=== PATIENT | female | born 1975 | race Caucasian/White ===

== ENCOUNTER 2016-11-23 11:12 | Emergency (ER) | payer OTHER ==
[~2016-11-23] VITALS: Ht 157.5 cm; Wt 61.2 kg
[~2016-11-23 11:12] MED LIST: POLY17PO6 PO; SERT100T PO; SERT50TA2 PO; TOPI100T PO
--- NOTE | 2016-11-23 12:09 | ED Abdominal Pain ---
General Stated Complaint: RIGHT SIDE ABD PAIN Source of Information: Patient Exam Limitations: No Limitations History of Present Illness Time Seen By Provider: 12:07 Initial Comments To ER with right upper quadrant abdominal pain. This began 2-3 days ago. She took her Humira shot for her crippling rheumatoid arthritis just prior to the onset of feeling ill with nausea and epigastric pain. She states that she does typically feel ill after taking her Humira shot but that that illness only typically last for 24-36 hours. No fever. No vomiting. No changes in bowel habits. She does have hepatitis C. She's been on Humira for about 7-8 months and states that she's had dramatic improvement in her arthritis. Timing/Duration: 2-3 Days Severity/Quality: Moderate Location: RUQ Radiation: No Radiation Associated Symptoms: Nausea/Vomiting Allergies and Home Medications Allergies Coded Allergies: No Known Drug Allergies (Unverified , 08/25/15) Home Medications Polyethylene Glycol 3350 17 Gm Powd.pack, 17 GM PO DAILY, #10 Prescribed by: HARIKA AVILEZ on 08/25/15 1227 Sertraline HCl 50 Mg Tablet, 50 MG PO DAILY, (Reported) Sertraline HCl 100 Mg Tablet, 100 MG PO DAILY, (Reported) Topiramate 100 Mg Tablet, 100 MG PO BID, (Reported) Review of Systems Constitutional: see HPI EENTM: No Symptoms Reported Respiratory: No Symptoms Reported Gastrointestinal: See HPI, Abdominal Pain Genitourinary: No Symptoms Reported Musculoskeletal: no symptoms reported Skin: no symptoms reported Psychiatric/Neurological: No Symptoms Reported Endocrine: No Symptoms Reported Hematologic/Lymphatic: No Symptoms Reported Past Bxveouh-Cgblzk-Mfyxec Hx Patient Social History Recent Foreign Travel: No Contact w/Someone Who Travel: No Surgeries HX Surgeries: Yes (ADHESIONS/LEFT OVARY REMOVED) Surgeries: Section, Gallbladder, Oophorectomy, Orthopedic, Tonsillectomy, Tubal Ligation Respiratory Hx Respiratory Disorders: No Cardiovascular Hx Cardiac Disorders: No Neurological Hx Neurological Disorders: Yes Neurological Disorders: Headaches /Migraines, Seizure Disorder Genitourinary Hx Genitourinary Disorders: No Gastrointestinal Hx Gastrointestinal Disorders: No Musculoskeletal Hx Musculoskeletal Disorders: Yes Musculoskeletal Disorders: Fibromyalgia, Rheumatoid Arthritis Endocrine Hx Endocrine Disorders: No HEENT HX ENT Disorders: No Cancer Hx Cancer: No Psychosocial Hx Psychiatric Problems: Yes Behavioral Health Disorders: Anxiety Integumentary HX Skin/Integumentary Disorder: No Blood Transfusions Hx Blood Disorders: No Physical Exam Vital Signs VS - Last 72 Hours, by Label 11/23/16 12:00 Temp 99.1 Pulse 63 Resp 18 B/P (MAP) 139/87 Pulse Ox 100 Capillary Refill : General Appearance: WD/WN, no apparent distress HEENT: PERRL/EOMI, normal ENT inspection Neck: non-tender, full range of motion Respiratory: no respiratory distress, no accessory muscle use Cardiovascular: regular rate, rhythm, no murmur Gastrointestinal: normal bowel sounds, non tender, soft Extremities: normal range of motion, non-tender, normal inspection Neurologic/Psychiatric: alert, normal mood/affect, oriented x 3 Skin: normal color, warm/dry Progress/Results/Core Measures Results/Orders Lab Results Laboratory Tests Test 11/23/16 12:00 11/23/16 12:05 Range/Units White Blood Count 8.4 4.3-11.0 10^3/uL Red Blood Count 4.38 4.35-5.85 10^6/uL Hemoglobin 13.6 11.5-16.0 G/DL Hematocrit 40 35-52 % Mean Corpuscular Volume 91 80-99 FL Mean Corpuscular Hemoglobin 31 25-34 PG Mean Corpuscular Hemoglobin Concent 34 32-36 G/DL Red Cell Distribution Width 14.3 10.0-14.5 % Platelet Count 177 130-400 10^3/uL Mean Platelet Volume 12.1 H 7.4-10.4 FL Neutrophils (%) (Auto) 54 42-75 % Lymphocytes (%) (Auto) 36 12-44 % Monocytes (%) (Auto) 8 0-12 % Eosinophils (%) (Auto) 2 0-10 % Basophils (%) (Auto) 0 0-10 % Neutrophils # (Auto) 4.5 1.8-7.8 X 10^3 Lymphocytes # (Auto) 3.1 1.0-4.0 X 10^3 Monocytes # (Auto) 0.7 0.0-1.0 X 10^3 Eosinophils # (Auto) 0.2 0.0-0.3 10^3/uL Basophils # (Auto) 0.0 0.0-0.1 10^3/uL Urine Color YELLOW Urine Clarity CLEAR Urine pH 5 5-9 Urine Specific [place] 1.020 1.016-1.022 Urine Protein NEGATIVE NEGATIVE Urine Glucose (UA) NEGATIVE NEGATIVE Urine Ketones NEGATIVE NEGATIVE Urine Nitrite NEGATIVE NEGATIVE Urine Bilirubin NEGATIVE NEGATIVE Urine Urobilinogen NORMAL NORMAL MG/DL Urine Leukocyte Esterase NEGATIVE NEGATIVE Urine RBC (Auto) NEGATIVE NEGATIVE Urine RBC NONE /HPF Urine WBC RARE /HPF Urine Squamous Epithelial Cells 5-10 /HPF Urine Crystals NONE /LPF Urine Bacteria NEGATIVE /HPF Urine Casts NONE /LPF Urine Mucus SMALL H /LPF Urine Culture Indicated NO Sodium Level 139 135-145 MMOL/L Potassium Level 4.0 3.6-5.0 MMOL/L Chloride Level 113 H 98-107 MMOL/L Carbon Dioxide Level 19 L 21-32 MMOL/L Anion Gap 7 5-14 MMOL/L Blood Urea Nitrogen 10 7-18 MG/DL Creatinine 0.95 0.60-1.30 MG/DL Estimat Glomerular Filtration Rate > 60 BUN/Creatinine Ratio 11 Glucose Level 86 70-105 MG/DL Calcium Level 9.0 8.5-10.1 MG/DL Total Bilirubin 0.3 0.1-1.0 MG/DL Aspartate Amino Transf (AST/SGOT) 20 5-34 U/L Alanine Aminotransferase (ALT/SGPT) 15 0-55 U/L Alkaline Phosphatase 57 40-136 U/L Total Protein 8.1 6.4-8.2 G/DL Albumin 4.3 3.2-4.5 G/DL Lipase 34 8-78 U/L Urine Test NEGATIVE NEGATIVE My Orders Orders - HARIKA AVILEZ APRN Ua Culture If Indicated (11/23/16 12:01) Cbc With Automated Diff (11/23/16 12:06) Comprehensive Metabolic Panel (11/23/16 12:06) Lipase (11/23/16 12:06) Saline Lock/Iv-Start (11/23/16 12:06) Fentanyl Injection (Sublimaze Injection (11/23/16 12:15) Ct Abdomen/Pelvis W (11/23/16 12:06) Iohexol Injection (Omnipaque 350 Mg/Ml 1 (11/23/16 12:15) Sodium Chloride Flush (Catheter Flush Sy (11/23/16 12:15) Ns (Ivpb) (Sodium Chloride 0.9% Ivpb Bag (11/23/16 12:15) Hcg,Qualitative Urine (11/23/16 12:21) Medications Given in ED Current Medications Medications Dose Ordered Sig/James Route Start Time Stop Time Status Last Admin Dose Admin Fentanyl Citrate 50 mcg ONCE ONCE IVP 11/23/16 12:15 11/23/16 12:16 DC 11/23/16 12:16 50 MCG Iohexol 100 ml ONCE ONCE IV 11/23/16 12:15 11/23/16 12:16 DC 11/23/16 12:47 100 ML Sodium Chloride 10 ml NEEDED PRN IV 11/23/16 12:15 11/23/16 12:47 10 ML Sodium Chloride 100 ml ONCE ONCE IV 11/23/16 12:15 11/23/16 12:16 DC 11/23/16 12:47 80 ML Vital Signs/I&O Vital Sign - Last 12Hours 11/23/16 12:00 Temp 99.1 Pulse 63 Resp 18 B/P (MAP) 139/87 Pulse Ox 100 Departure Impression Impression: Primary Impression: Right upper quadrant pain Additional Impression: Ovarian cyst, right Disposition: 01 HOME, SELF-CARE Condition: Stable Departure-Patient Inst. Decision time for Depature: 13:35 Referrals: [facility] (PCP/Family) Primary Care Physician Patient Instructions: No Instuctions Given Add. Discharge Instructions: follow up with gynecology next week. Return to ER for any worsening HARIKA AVILEZ APRN Nov 23, 2016 12:09
[2016-11-23] MEDS ORDERED: IOHEXOL 350 MG/ML 100 ML (OMNIPAQUE 350) VIAL IV ONE (12:15)
[2016-11-23] MEDS ORDERED: fentaNYL INJECTION 100 MCG/2 ML AMP IVP ONE (12:15)
[2016-11-23] MEDS ORDERED: NS 100 ML (IVPB) BAG IV ONE (12:15)
[2016-11-23] MEDS ORDERED: CATHETER FLUSH 10 ML SYR IV PRN (12:15)
[2016-11-23 12:23] LABS: BASOPHILS % (AUTO) 0 % (0-10); EOSINOPHILS # (AUTO) 0.2 10^3/uL (0.0-0.3); EOSINOPHILS % (AUTO) 2 % (0-10); LYMPHOCYTES # (AUTO) 3.1 X 10^3 (1.0-4.0); LYMPHOCYTES % (AUTO) 36 % (12-44); MEAN CORPUSCULAR HEMOGLOBIN 31 PG (25-34); MEAN CORPUSCULAR HGB CONC 34 G/DL (32-36); MEAN CORPUSCULAR VOLUME 91 FL (80-99); MEAN PLATELET VOLUME 12.1 FL (7.4-10.4); MONOCYTES # (AUTO) 0.7 X 10^3 (0.0-1.0); MONOCYTES % (AUTO) 8 % (0-12); NEUTROPHILS # (AUTO) 4.5 X 10^3 (1.8-7.8); NEUTROPHILS % (AUTO) 54 % (42-75); PLATELET COUNT 177 10^3/uL (130-400); RED BLOOD COUNT 4.38 10^6/uL (4.35-5.85); RED CELL DISTRIBUTION WIDTH 14.3 % (10.0-14.5); WHITE BLOOD COUNT 8.4 10^3/uL (4.3-11.0)
[2016-11-23 12:27] LABS: BILIRUBIN,URINE NEGATIVE (NEGATIVE); KETONES,URINE NEGATIVE (NEGATIVE); LEUKOCYTE ESTERASE ,URINE NEGATIVE (NEGATIVE); NITRITE,URINE NEGATIVE (NEGATIVE); PH,URINE 5 (5-9); PROTEIN,URINE NEGATIVE (NEGATIVE); UROBILINOGEN,URINE NORMAL (NORMAL)
[2016-11-23 12:35] LABS: WBC,URINE RARE /HPF
[2016-11-23 12:42] LABS: ALANINE AMINOTRANSFERASE 15 U/L (0-55); ALBUMIN 4.3 G/DL (3.2-4.5); ANION GAP 7 MMOL/L (5-14); ASPARTATE AMINO TRANSFERASE 20 U/L (5-34); BILIRUBIN,TOTAL 0.3 MG/DL (0.1-1.0); BLOOD UREA NITROGEN 10 MG/DL (7-18); BUN/CREATININE RATIO 11; CARBON DIOXIDE 19 MMOL/L (21-32); CHLORIDE 113 MMOL/L (98-107); CREATININE SERUM 0.95 MG/DL (0.60-1.30); GFR ESTIMATED > 60; GLUCOSE 86 MG/DL (70-105); LIPASE 34 U/L (8-78); SODIUM 139 MMOL/L (135-145); TOTAL PROTEIN 8.1 G/DL (6.4-8.2)
--- NOTE | 2016-11-23 13:23 | Diagnostic Imaging Report ---
PROCEDURE: CT abdomen and pelvis with contrast. TECHNIQUE: Multiple contiguous axial images were obtained through the abdomen and pelvis after administration of intravenous contrast. INDICATION: Right upper quadrant pain x 3 days. Patient is on Humira for rheumatoid arthritis. Nausea and bloating. FINDINGS: The lung bases are clear. No evidence of interstitial lung disease. The liver shows fatty changes. The liver is enlarged measuring approximately 20 x 8 x 16 cm. No focal liver lesions are present. The bile ducts are not dilated. The pancreas and spleen appear normal. The adrenal glands appear normal. The kidneys are normal. There is normal enhancement of the abdominal aorta and abdominal vessels following IV contrast which appear normal. There is symmetrical nephrogram effect of the kidneys. There are multiple loops of fluid-filled small bowel in the pelvis although there does not appear to be obstruction or significant distention. The maximal diameter of the bowel loops is approximately 1.6 cm. The colon shows a normal stool and gas pattern. There is no free air or free fluid demonstrated. There is a hemorrhagic appearing cyst in the right ovary measuring 1.3 cm. There are multiple pelvic varicosities noted on the left. The bladder is decompressed. No blastic or lytic bony lesions are demonstrated. IMPRESSION: 1. Mild hepatomegaly with fatty change. The overall appearance of the liver does not appear significantly different when compared with 08/25/2015. 2. Fluid-filled loops of small bowel with no evidence of bowel obstruction. This is similar to the previous exam as well. 3. Probable hemorrhagic cyst in the right ovary as described. Dictated by: Dictated on workstation # [id number]
[2016-11-23 13:57] VITALS: BP 122/68
== END 2016-11-23 13:57 | disposition home or self-care (01) ==
LOC: EDUNIT# 11:12 → ER 11:16
DX: R10.11 Right upper quadrant pain (principal); R11.0 Nausea; N83.201 Unspecified ovarian cyst, right side; K76.0 Fatty (change of) liver, not elsewhere classified; M06.9 Rheumatoid arthritis, unspecified; Z79.899 Other long term (current) drug therapy
CPT/HCPCS: 36415; 74177; 80053; 81000; 83690; 84703; 85025; 96374

== ENCOUNTER → 2016-12-26 | Outpatient (CLI) | payer OTHER ==
--- NOTE | 2016-12-26 13:34 | Diagnostic Imaging Report ---
Transabdominal and transvaginal pelvic ultrasound. INDICATION: Abnormal uterine bleeding. FINDINGS: The uterus is 8.8 x 4.5 x 3.8 cm. The endometrial stripe is 5 mm in thickness. There is no focal myometrial lesion seen. Slightly prominent vessels along the periphery of the uterus are noted. Also prominent vessels in the adnexa are seen. This is probably related to ovarian vein reflux. The right ovary is 4.5 x 1.7 x 2.9 cm. There is a hyperechoic lesion in the right ovary measuring 1.7 cm in size with peripheral vascularity likely a hemorrhagic corpus luteum cyst. The left ovary is surgically removed. IMPRESSION: Prominent vessels in the periphery of the uterus and around the adnexa suggestive of pelvic congestion from ovarian vein reflux. This does not explain the uterine bleeding. Dictated by: Dictated on workstation # [id number]
== END ==
LOC: RAD 10:03
PROVIDERS: ATTEND Obstetrics & Gynecology
DX: N93.8 Other specified abnormal uterine and vaginal bleeding (principal); N94.5 Secondary dysmenorrhea; N83.201 Unspecified ovarian cyst, right side
CPT/HCPCS: 76830; 76856

== ENCOUNTER 2020-11-21 17:35 | Emergency (ER) | payer MEDICAID ==
[~2020-11-21] VITALS: Ht 157.5 cm; Wt 64.9 kg
--- NOTE | 2020-11-21 18:13 | ED Abdominal Pain ---
General Chief Complaint: Abdominal/GI Problems Stated Complaint: DIARRHEA/CONSTIPATION/STOMACH PAIN Nursing Triage Note: PT AMBULATE TO ROOM 06 WITH C/O NAUSEA, ABD PAIN, AND RIGHT LOWER BACK PAIN. PT REPORTS SHE BROUGHT A STOOL SAMPLE SHE COLLECTED TODAY. PT REPORTS SHE IS A RECOVERING IV METH USER. PT STATES SHE HAS BEEN SEEING PROVIDERS X2 YEARS FOR THIS C/O AND HAS BEEN TOLD THAT THERE IS NOTHING WRONG WITH HER. PT STATES PROVIDER AT A CLINIC THERESA HER URINE AND IT HAD KETONES IN IT SO SHE MUST HAVE BEEN USING DRUGS. Sepsis Screen: No Definite Risk Source of Information: Patient Exam Limitations: No Limitations History of Present Illness Date Seen by Provider: Nov 21, 2020 Time Seen by Provider: 18:11 Initial Comments To ER with reports of nausea abdominal pain for 1.5 years. Its been worse for about 2 weeks. She is a current "closet" IV methamphetamine user. She brought a stool sample with her from today as she believes something is moving in it. Timing/Duration: 1-2 Days Severity/Quality: Moderate Radiation: No Radiation Activities at Onset: None Associated Symptoms: Nausea/Vomiting Allergies and Home Medications Allergies Coded Allergies: No Known Drug Allergies (Unverified , 08/25/15) Home Medications Polyethylene Glycol 3350 17 Gm Powd.pack, 17 GM PO DAILY Prescribed by: HARIKA AVILEZ on 08/25/15 1227 Sertraline HCl 50 Mg Tablet, 50 MG PO DAILY, (Reported) Sertraline HCl 100 Mg Tablet, 100 MG PO DAILY, (Reported) Topiramate 100 Mg Tablet, 100 MG PO BID, (Reported) Patient Home Medication List Home Medication List Reviewed: Yes Review of Systems Review of Systems Constitutional: see HPI EENTM: No Symptoms Reported Respiratory: No Symptoms Reported Cardiovascular: No Symptoms Reported Gastrointestinal: See HPI, Abdominal Pain Genitourinary: No Symptoms Reported Musculoskeletal: no symptoms reported Skin: no symptoms reported Psychiatric/Neurological: No Symptoms Reported Endocrine: No Symptoms Reported Past Buuccqw-Fnsahg-Idcgtw Hx Patient Social History Alcohol Use: Denies Use Drug of Choice: IV METH Smoking Status: Current Everyday Smoker 2nd Hand Smoke Exposure: Yes Recent Infectious Disease Expo: No Seasonal Allergies Seasonal Allergies: No Past Medical History Surgeries: Yes (ADHESIONS/LEFT OVARY REMOVED) Section, Gallbladder, Oophorectomy, Orthopedic, Tonsillectomy, Tubal Ligation Respiratory: No Cardiac: No Neurological: Yes Headaches /Migraines, Seizure Disorder [employer]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 oz. 61.990402ip; 26.00 BMI Method:Stated General Appearance: WD/WN, no apparent distress, other (Hyperactive, anxious appearing) HEENT: PERRL/EOMI, normal ENT inspection Neck: non-tender, full range of motion Respiratory: no respiratory distress, no accessory muscle use Cardiovascular: no murmur, tachycardia Gastrointestinal: normal bowel sounds, non tender, soft Neurologic/Psychiatric: alert, normal mood/affect, oriented x 3 Skin: normal color, warm/dry Exam Comments She brought a stool sample with her in a glove that she wants me to look at. She states there is something in it that is moving. She put a sample of this on a glass slide for a microscope which she will has also brought with her. She states that she has been looking at this under her microscope at home. She also has something else that came out of her rectum during a bowel movement that is dried at home and she believes it to be now. Progress/Results/Core Measures Results/Orders Lab Results Laboratory Tests Test 11/21/20 18:23 11/21/20 18:46 Range/Units White Blood Count 6.9 4.3-11.0 10^3/uL Red Blood Count 4.44 3.80-5.11 10^6/uL Hemoglobin 13.2 11.5-16.0 g/dL Hematocrit 41 35-52 % Mean Corpuscular Volume 91 80-99 fL Mean Corpuscular Hemoglobin 30 25-34 pg Mean Corpuscular Hemoglobin Concent 33 32-36 g/dL Red Cell Distribution Width 14.0 10.0-14.5 % Platelet Count 254 130-400 10^3/uL Mean Platelet Volume 11.4 9.0-12.2 fL Immature Granulocyte % (Auto) 0 % Neutrophils (%) (Auto) 52 42-75 % Lymphocytes (%) (Auto) 36 12-44 % Monocytes (%) (Auto) 7 0-12 % Eosinophils (%) (Auto) 5 0-10 % Basophils (%) (Auto) 1 0-10 % Neutrophils # (Auto) 3.6 1.8-7.8 10^3/uL Lymphocytes # (Auto) 2.5 1.0-4.0 10^3/uL Monocytes # (Auto) 0.5 0.0-1.0 10^3/uL Eosinophils # (Auto) 0.4 H 0.0-0.3 10^3/uL Basophils # (Auto) 0.0 0.0-0.1 10^3/uL Immature Granulocyte # (Auto) 0.0 0.0-0.1 10^3/uL Sodium Level 142 135-145 MMOL/L Potassium Level 3.5 L 3.6-5.0 MMOL/L Chloride Level 108 H 98-107 MMOL/L Carbon Dioxide Level 21 21-32 MMOL/L Anion Gap 13 5-14 MMOL/L Blood Urea Nitrogen 13 7-18 MG/DL Creatinine 1.37 H 0.60-1.30 MG/DL Estimat Glomerular Filtration Rate 41 BUN/Creatinine Ratio 9 Glucose Level 116 H 70-105 MG/DL Calcium Level 10.1 8.5-10.1 MG/DL Corrected Calcium 9.7 8.5-10.1 MG/DL Total Bilirubin 0.3 0.1-1.0 MG/DL Aspartate Amino Transf (AST/SGOT) 28 5-34 U/L Alanine Aminotransferase (ALT/SGPT) 23 0-55 U/L Alkaline Phosphatase 116 40-136 U/L Total Protein 8.8 H 6.4-8.2 GM/DL Albumin 4.5 3.2-4.5 GM/DL Serum Test, Qualitative NEGATIVE NEGATIVE Urine Color YELLOW Urine Clarity SL CLOUDY Urine pH 7.0 5-9 Urine Specific [place] 1.015 L 1.016-1.022 Urine Protein NEGATIVE NEGATIVE Urine Glucose (UA) NEGATIVE NEGATIVE Urine Ketones NEGATIVE NEGATIVE Urine Nitrite NEGATIVE NEGATIVE Urine Bilirubin NEGATIVE NEGATIVE Urine Urobilinogen 0.2 < = 1.0 MG/DL Urine Leukocyte Esterase NEGATIVE NEGATIVE Urine RBC (Auto) NEGATIVE NEGATIVE Urine RBC NONE /HPF Urine WBC 0-2 /HPF Urine Crystals PRESENT H /LPF Urine Amorphous Sediment FEW NILA PHOSPHATE H /LPF Urine Bacteria TRACE /HPF Urine Casts NONE /LPF Urine Mucus SMALL H /LPF Urine Culture Indicated NO Urine Opiates Screen NEGATIVE NEGATIVE Urine Oxycodone Screen NEGATIVE NEGATIVE Urine Methadone Screen NEGATIVE NEGATIVE Urine Propoxyphene Screen NEGATIVE NEGATIVE Urine Barbiturates Screen NEGATIVE NEGATIVE Ur Tricyclic Antidepressants Screen NEGATIVE NEGATIVE Urine Phencyclidine Screen NEGATIVE NEGATIVE Urine Amphetamines Screen POSITIVE H NEGATIVE Urine Methamphetamines Screen POSITIVE H NEGATIVE Urine Benzodiazepines Screen NEGATIVE NEGATIVE Urine Cocaine Screen NEGATIVE NEGATIVE Urine Cannabinoids Screen POSITIVE H NEGATIVE My Orders Orders - HARIKA AVILEZ SERVICE DELIVERY CONSULTANT Cbc With Automated Diff (11/21/20 18:07) Comprehensive Metabolic Panel (11/21/20 18:07) Ua Culture If Indicated (11/21/20 18:07) Drug Screen Stat (Urine) (11/21/20 18:07) Ed Iv/Invasive Line Start (11/21/20 18:07) Ct Abdomen/Pelvis W (11/21/20 18:07) Hcg,Qualitative Serum (11/21/20 18:07) Haloperidol Injection (Haldol Injectio (11/21/20 18:15) Ns Iv 1000 Ml (Sodium Chloride 0.9%) (11/21/20 18:15) Iohexol Injection (Omnipaque 350 Mg/Ml 1 (11/21/20 18:30) Received Contrast (Hold Metformin- Contr (11/21/20 18:30) Ns (Ivpb) (Sodium Chloride 0.9% Ivpb Bag (11/21/20 18:30) Medications Given in ED Current Medications Medications Dose Ordered Sig/James Route Start Time Stop Time Status Last Admin Dose Admin Haloperidol Lactate 2.5 mg ONCE ONCE IM/IV 11/21/20 18:15 11/21/20 18:16 DC 11/21/20 19:20 2.5 MG Iohexol 100 ml ONCE ONCE IV 11/21/20 18:30 11/21/20 18:31 DC 11/21/20 18:34 82 ML Sodium Chloride 100 ml ONCE ONCE IV 11/21/20 18:30 11/21/20 18:31 DC 11/21/20 18:34 80 ML Vital Signs/I&O 11/21/20 17:57 Temp 35.9 Pulse 115 Resp 22 B/P (MAP) 167/108 (127) O2 Delivery Room Air Blood Pressure Mean: 127 Diagnostic Imaging Diagonstic Imaging: CT Comments NAME: MAYRA RENEE [facility] REC#: [id number] PT STATUS: REG ER : 1975 PHYSICIAN: HARIKA AVILEZ APRN ADMIT DATE: 11/21/20/ER Draft Date of Exam:11/21/20 CT ABDOMEN/PELVIS W PROCEDURE: CT abdomen and pelvis with contrast, 11/21/2020. TECHNIQUE: Multiple contiguous axial images were obtained through the abdomen and pelvis after administration of intravenous contrast. Auto Exposure Controls were utilized during the CT exam to meet ALARA standards for radiation dose reduction. All CT scans use one or more of the following dose optimizing techniques: automated exposure control, MA and/or KvP adjustment based on patient size and exam type or iterative reconstruction. INDICATION: Right lower back pain, nausea and abdominal pain. FINDINGS: Lung bases clear. The liver and spleen unremarkable. There is evidence of previous cholecystectomy. The adrenal glands and pancreas appear unremarkable. Kidneys within normal limits. The stomach is distended and fluid-filled with several prominent appearing fluid-filled small bowel loops in the mid and lower abdomen, perhaps due to an enteritis. The appendix is unremarkable. There is no ascites or free air. The distal colon is decompressed with wall thickening either due to the decompressed appearance versus a focal colitis. The osseous structures unremarkable for acute abnormality. IMPRESSION: 1. Findings of diffuse enteritis and possible colitis with gastritis not excluded given the appearance of the stomach. 2. Otherwise unremarkable examination. Dictated on workstation # [id number] Dict: 11/21/201840 Trans: 11/21/201848 [facility] [id number] Interpreted by: GENIE SPENCER MD Electronically signed by: Departure Communication (Admissions) She has a small stool sample with her that is insufficient for laboratory evaluation for ova and parasites. She is unable to provide us with additional stool for that sample. Impression Primary Impression: Gastroenteritis Departure-Patient Inst. Decision time for Depature: 18:55 Referrals: KERLINE BATEMAN APRN (PCP/Family) Primary Care Physician Patient Instructions: NO INSTRUCTIONS GIVEN Add. Discharge Instructions: 1. REturn to ER any concerns. Follow-up with your doctor this week. All discharge instructions reviewed with patient and/or family. Voiced understanding. HARIKA AVILEZ APRN Nov 21, 2020 18:13
[2020-11-21] MEDS ORDERED: NS IV 1000 ML 1,000 ML IV SCH (18:15)
[2020-11-21] MEDS ORDERED: HALOPERIDOL 5 MG/ML (HALDOL) VIAL IM/IV ONE (18:15)
[2020-11-21 18:29] LABS: BASOPHILS % (AUTO) 1 % (0-10); EOSINOPHILS # (AUTO) 0.4 10^3/uL (0.0-0.3); EOSINOPHILS % (AUTO) 5 % (0-10); HEMATOCRIT 41 % (35-52); HEMOGLOBIN 13.2 g/dL (11.5-16.0); LYMPHOCYTES # (AUTO) 2.5 10^3/uL (1.0-4.0); LYMPHOCYTES % (AUTO) 36 % (12-44); MEAN CORPUSCULAR HEMOGLOBIN 30 pg (25-34); MEAN CORPUSCULAR HGB CONC 33 g/dL (32-36); MEAN CORPUSCULAR VOLUME 91 fL (80-99); MEAN PLATELET VOLUME 11.4 fL (9.0-12.2); MONOCYTES # (AUTO) 0.5 10^3/uL (0.0-1.0); MONOCYTES % (AUTO) 7 % (0-12); NEUTROPHILS # (AUTO) 3.6 10^3/uL (1.8-7.8); NEUTROPHILS % (AUTO) 52 % (42-75); PLATELET COUNT 254 10^3/uL (130-400); WHITE BLOOD COUNT 6.9 10^3/uL (4.3-11.0)
[2020-11-21] MEDS ORDERED: HOLD METFORMIN - RECEIVED CONTRAST 20 ML VIAL IV SCH (18:30)
[2020-11-21] MEDS ORDERED: NS 100 ML (IVPB) BAG IV ONE (18:30)
[2020-11-21] MEDS ORDERED: IOHEXOL 350 MG/ML 100 ML (OMNIPAQUE 350) VIAL IV ONE (18:30)
--- NOTE | 2020-11-21 18:49 | Diagnostic Imaging Report ---
PROCEDURE: CT abdomen and pelvis with contrast, 11/21/2020. TECHNIQUE: Multiple contiguous axial images were obtained through the abdomen and pelvis after administration of intravenous contrast. Auto Exposure Controls were utilized during the CT exam to meet ALARA standards for radiation dose reduction. All CT scans use one or more of the following dose optimizing techniques: automated exposure control, MA and/or KvP adjustment based on patient size and exam type or iterative reconstruction. INDICATION: Right lower back pain, nausea and abdominal pain. FINDINGS: Lung bases clear. The liver and spleen unremarkable. There is evidence of previous cholecystectomy. The adrenal glands and pancreas appear unremarkable. Kidneys within normal limits. The stomach is distended and fluid-filled with several prominent appearing fluid-filled small bowel loops in the mid and lower abdomen, perhaps due to an enteritis. The appendix is unremarkable. There is no ascites or free air. The distal colon is decompressed with wall thickening either due to the decompressed appearance versus a focal colitis. The osseous structures unremarkable for acute abnormality. IMPRESSION: 1. Findings of diffuse enteritis and possible colitis with gastritis not excluded given the appearance of the stomach. 2. Otherwise unremarkable examination. Dictated by: Dictated on workstation # [id number]
[2020-11-21 18:54] LABS: BILIRUBIN,URINE NEGATIVE (NEGATIVE); CLARITY,URINE SL CLOUDY; COLOR,URINE YELLOW; GLUCOSE, URINE (UA) NEGATIVE (NEGATIVE); KETONES,URINE NEGATIVE (NEGATIVE); LEUKOCYTE ESTERASE ,URINE NEGATIVE (NEGATIVE); NITRITE,URINE NEGATIVE (NEGATIVE); PROTEIN,URINE NEGATIVE (NEGATIVE)
[2020-11-21 18:57] LABS: ALBUMIN 4.5 GM/DL (3.2-4.5); BILIRUBIN,TOTAL 0.3 MG/DL (0.1-1.0); CALCIUM 10.1 MG/DL (8.5-10.1); CREATININE SERUM 1.37 MG/DL (0.60-1.30); POTASSIUM 3.5 MMOL/L (3.6-5.0); TOTAL PROTEIN 8.8 GM/DL (6.4-8.2)
[2020-11-21 19:07] LABS: BACTERIA,URINE TRACE /HPF
[2020-11-21 19:08] LABS: AMORPHOUS SEDIMENT,UR FEW AMOR PHOSPHATE /LPF; WBC,URINE 0-2 /HPF
[2020-11-21 19:27] LABS: AMPHETAMINE SCREEN, URINE POSITIVE (NEGATIVE); BARBITURATE SCREEN URINE NEGATIVE (NEGATIVE); BENZODIAZEPINES SCREEN URINE NEGATIVE (NEGATIVE); CANNABINOID SCREEN, URINE POSITIVE (NEGATIVE); COCAINE SCREEN URINE NEGATIVE (NEGATIVE); METHADONE STAT NEGATIVE (NEGATIVE); METHAMPHETAMINE SCREEN URINE S POSITIVE (NEGATIVE); OPIATE SCREEN URINE NEGATIVE (NEGATIVE); OXYCODONE STAT NEGATIVE (NEGATIVE); PROPOXYPHENE STAT NEGATIVE (NEGATIVE); TRICYCLIC ANTIDEPRESSANTS SCRE NEGATIVE (NEGATIVE)
[2020-11-21 20:33] VITALS: BP 131/69
== END 2020-11-21 20:32 | disposition home or self-care (01) ==
LOC: EDUNIT# 17:35 → ER 17:39
DX: K52.9 Noninfective gastroenteritis and colitis, unspecified (principal); F41.9 Anxiety disorder, unspecified; F17.200 Nicotine dependence, unspecified, uncomplicated
CPT/HCPCS: 36415; 74177; 80053; 80306; 81000; 84703; 85025